=== PATIENT | female | born 1975 | race Caucasian/White ===

== ENCOUNTER 2017-03-18 14:46 | Emergency (ER) | payer OTHER ==
[~2017-03-18] VITALS: Ht 165.1 cm; Wt 68.1 kg
[~2017-03-18 14:46] MED LIST: MOTRIN800 MG PO; NOHOMEMEDS; NORCO 10/3251 TABLET PO; VALTREX1000 MG PO
[2017-03-18 15:49] LABS: BASOPHIL (%) 0.4 % (0-1); BASOPHIL COUNT 0.1 K/uL (0-0.1); EOSINOPHIL (%) 0.3 % (0-5); EOSINOPHIL COUNT 0.1 K/uL (0-0.3); HEMATOCRIT 40.8 % (36.0-46.0); HEMOGLOBIN 13.9 G/DL (11.9-15.5); IMMATURE GRANULOCYTE (%) 0.5 % (0.0-0.7); LYMPHOCYTE (%) 4.1 % (15-42); LYMPHOCYTE COUNT 0.6 K/uL (1.0-2.8); MCH 32.5 PG (29.0-34.0); MCHC 34.1 G/DL (30.0-36.0); MCV 95.3 FL (83-99); MONOCYTE (%) 3.6 % (3-12); MONOCYTE COUNT 0.6 K/uL (0-0.8); NEUTROPHIL (%) 91.1 % (45-76); NEUTROPHIL COUNT 14.3 K/uL (1.8-6.4); PLATELET COUNT 295 K/uL (156-360); RBC DIS.WIDTH-CV 11.6 % (11.8-14.6); RBC DIS.WIDTH-SD 40.2 % (39-53); RED BLOOD COUNT 4.28 M/uL (3.80-5.20); WHITE BLOOD COUNT 15.7 K/uL (4.1-10.2)
[2017-03-18 15:58] LABS: APPEARANCE CLEAR ((CLEAR)); BILIRUBIN NEGATIVE; BLOOD LARGE; COLOR YELLOW ((YELLOW)); GLUCOSE (STRIP) NEGATIVE; KETONES 20; LEUKOCYTES NEGATIVE; NITRITE NEGATIVE; PROTEIN (STRIP) 30; SPECIFIC GRAVITY 1.027 (1.000-1.030); UROBILINOGEN 0.2 MG/DL (0.2-1.0)
[2017-03-18 16:02] LABS: BACTERIA NONE SEEN /HPF; EPITHELIAL CELLS RARE /HPF; MUCUS TRACE /LPF; WHITE BLOOD CELLS 0-5 /HPF (0-5)
[2017-03-18 16:14] LABS: ALBUMIN 4.3 g/dL (3.2-4.8); CHLORIDE 106 mEq/L (99-109); SODIUM 138 mEq/L (136-147)
[2017-03-18 16:16] LABS: GLUCOSE 109 mg/dL (70-99)
[2017-03-18 16:17] LABS: TOTAL PROTEIN 7.1 g/dL (6.4-8.3)
[2017-03-18 16:18] LABS: TOTAL BILIRUBIN 0.3 mg/dL (0.0-1.0)
[2017-03-18 16:20] LABS: ALKALINE PHOSPHATASE 48 IU/L (3-129); GFR ESTIMATE (CALCULATED) > 59 mL/min/
[2017-03-18 16:21] LABS: UREA NITROGEN (BUN) 26 mg/dL (9-23)
[2017-03-18 16:22] LABS: AST (GOT) 15 IU/L (2-34)
[2017-03-18 16:23] LABS: ALT (GPT) 13 IU/L (3-49)
[2017-03-18] MEDS ORDERED: PERCOCET 5/31 TABLET PO (16:32)
[2017-03-18] MEDS ORDERED: ZOFRAN ODT4 MG PO (16:32)
[2017-03-18] MEDS ORDERED: FLOMAX0.4 MG PO (16:32)
[2017-03-18 17:11] VITALS: BP 130/75
== END 2017-03-18 17:23 | disposition home or self-care (01) ==
LOC: EME 14:46
PROVIDERS: Physician Assistant
DX: N13.2 Hydronephrosis with renal and ureteral calculous obstruction (principal); Z90.711 Acquired absence of uterus with remaining cervical stump
CPT/HCPCS: 74176; 80053; 81003; 85025; J1885; J2270; J2405; J7030